=== PATIENT | female | born 1945 | race Caucasian/White ===

== ENCOUNTER → 2017-02-14 12:19 | Outpatient (CLI) | payer MEDICARE ==
[2011-01-08 09:09] VITALS: BMI 14.8
[2017-02-14 12:59] LABS: BASOPHILS 0.6 % (0-2); HEMATOCRIT 38.7 % (36.0-48.0); IMMATURE GRANULOCYTES 0.3 % (0-5); LYMPHOCYTES 18.5 % (15-50); MCH 31.1 pg (26.0-34.0); MCHC 33.6 g/dL (31.0-37.0); MCV 92.6 fL (80.0-100.0); MEAN PLATELET VOLUME 9.5 fL (7.4-10.4); MONOCYTES 9.4 % (2-11); NEUTROPHILS 69.2 % (40-80); RBC 4.18 10x6/uL (4.00-5.40); RDW 13.6 % (11.5-14.5); WBC 7.1 10x3/uL (4.8-10.8)
[2017-02-14 13:00] LABS: PLATELET COUNT 401 10x3/uL (130-400)
[2017-02-14 13:20] LABS: ALBUMIN 2.5 g/dL (3.4-5.0); ANION GAP 11.1 mmol/L (8-16); BILIRUBIN - TOTAL 0.25 mg/dL (0.2-1.3); CALCIUM 8.9 mg/dL (8.5-10.1); CARBON DIOXIDE 29.3 mmol/L (21.0-32.0); CREATININE - SERUM 0.9 mg/dL (0.6-1.3); POTASSIUM - SERUM 3.4 mmol/L (3.5-5.1); PROTEIN - SERUM 7.2 g/dL (6.4-8.2)
== END | disposition home or self-care (01) ==
LOC: D.RAD 12:19
PROVIDERS: Family Medicine
DX: J44.9 Chronic obstructive pulmonary disease, unspecified (principal); J18.9 Pneumonia, unspecified organism

== ENCOUNTER 2017-07-07 10:37 | Emergency (ER) | payer MEDICARE ==
[2011-01-08 09:09] VITALS: BMI 14.8
== END 2017-07-07 14:00 | disposition home or self-care (01) ==
LOC: D.ER 10:37
DX: M06.831 Other specified rheumatoid arthritis, right wrist (principal)

== ENCOUNTER → 2017-08-01 13:12 | Outpatient (CLI) | payer MEDICARE ==
[2011-01-08 09:09] VITALS: BMI 14.8
[2017-08-01 14:35] LABS: BASOPHILS 0.2 % (0-2); EOSINOPHILS 0.6 % (0-7); HEMOGLOBIN 14.7 g/dL (12-16); IMMATURE GRANULOCYTES 0.1 % (0-5); LYMPHOCYTES 11.7 % (15-50); MCH 31.6 pg (26.0-34.0); MCHC 34.2 g/dL (31.0-37.0); MCV 92.5 fL (80.0-100.0); MEAN PLATELET VOLUME 10.3 fL (7.4-10.4); MONOCYTES 7.2 % (2-11); NEUTROPHILS 80.2 % (40-80); RBC 4.65 10x6/uL (4.00-5.40); WBC 8.2 10x3/uL (4.8-10.8)
[2017-08-01 14:37] LABS: PLATELET COUNT 210 10x3/uL (130-400)
[2017-08-01 14:40] LABS: ALBUMIN 2.9 g/dL (3.4-5.0); ANION GAP 14.4 mmol/L (8-16); BILIRUBIN - TOTAL 0.88 mg/dL (0.2-1.3); C-REACTIVE PROTEIN 6.7 mg/dL (0.0-0.9); CALCIUM 8.7 mg/dL (8.5-10.1); CARBON DIOXIDE 26.7 mmol/L (21.0-32.0); CREATININE - SERUM 0.9 mg/dL (0.6-1.3); POTASSIUM - SERUM 4.1 mmol/L (3.5-5.1); PROTEIN - SERUM 7.2 g/dL (6.4-8.2)
[2017-08-01 15:52] LABS: ERYTHROCYTE SEDIMENTATION RATE 63 mm/hr (0-30)
== END | disposition home or self-care (01) ==
LOC: D.LAB 13:12
PROVIDERS: Family Medicine
DX: J44.9 Chronic obstructive pulmonary disease, unspecified (principal); M06.9 Rheumatoid arthritis, unspecified; M18.0 Bilateral primary osteoarthritis of first carpometacarpal joints; M19.90 Unspecified osteoarthritis, unspecified site

== ENCOUNTER → 2018-08-21 11:42 | Outpatient (CLI) | payer MEDICARE ==
[2011-01-08 09:09] VITALS: BMI 14.8
== END | disposition home or self-care (01) ==
LOC: D.RT 06-22 11:00 → D.RAD 06-22 11:45 → D.RT 11:42
PROVIDERS: ATTEND Internal Medicine Pulmonary Disease
DX: J44.9 Chronic obstructive pulmonary disease, unspecified (principal)

== ENCOUNTER → 2018-11-06 12:25 | Outpatient (CLI) | payer MEDICARE ==
[2011-01-08 09:09] VITALS: BMI 14.8
== END | disposition home or self-care (01) ==
LOC: D.RAD 10-19 13:00
PROVIDERS: ATTEND Family Medicine
DX: R13.10 Dysphagia, unspecified (principal)

== ENCOUNTER → 2019-01-22 13:32 | Outpatient (CLI) | payer MEDICARE ==
[2011-01-08 09:09] VITALS: BMI 14.8
== END | disposition home or self-care (01) ==
LOC: D.RAD 11-26 09:15
PROVIDERS: ATTEND Internal Medicine Pulmonary Disease
DX: A31.0 Pulmonary mycobacterial infection (principal)

== ENCOUNTER 2020-06-06 22:15 | Inpatient (IN) | payer MEDICARE ==
[~2020-06-06] VITALS: Ht 165.1 cm; Wt 28.8 kg
--- NOTE | ~2020-06-06 | CN ---
PATIENT NAME:TERRELL JFAFE MEDICAL RECORD: [id number] : 47 LOCATION:D.MS [address] ADMIT DATE: 06/07/20 ACCOUNT: [id number] CONSULTING PHYSICIAN: JOHN KOTHARI MD REFERRING PHYSICIAN: JOSH EWING MD DATE OF CONSULTATION: 06/07/2020 HISTORY OF PRESENT ILLNESS: The patient is a 74-year-old female with history of COPD-O2 dependent, atherosclerotic heart disease, CVA, cardiomegaly via chest x-ray who was admitted with presyncope/syncope symptoms. The patient denies any active chest pain symptoms. The patient complains of chronic back pain. Asked to evaluate from a cardiovascular standpoint. PAST MEDICAL HISTORY: Significant for; 1. Presyncope/syncope. 2. History of CVA. 3. Atherosclerotic heart disease. 4. History of COPD-O2 dependent. 5. Cardiomegaly via chest x-ray. PHYSICAL EXAMINATION: GENERAL: Frail white female, O2 oxygen, in no apparent distress. VITAL SIGNS: Blood pressures 120s/50s, pulse 80s (regular). HEENT: Sclerae clear; conjunctivae pink. NECK: Supple; no appreciable JVD. HEART: She has got a regular rhythm and rate. II/ systolic murmur. LUNGS: Mild rhonchi bilaterally. No rales. ABDOMEN: Benign. EXTREMITIES: Negative for edema. NEUROLOGIC: Nonfocal. LABORATORY DATA: White blood cell count 8.5, hemoglobin and hematocrit 15 and 44, platelet count is 171. Sodium 138, potassium 3.8, BUN 19, creatinine 0.9. BNP is 1831 (elevated). Troponin 0.017 (negative). TSH 2.0 (within normal limits). DIAGNOSTIC STUDIES: EKG shows sinus rhythm, 75 beats per minute with occasional VPC. MEDICATIONS: 1. Nicotine patch. 2. Lovenox 30 mg subQ daily. 3. Protonix 40 mg daily. 4. Albuterol inhalers. HOME MEDICATION: Trazodone 50 mg p.o. q.8 hours p.r.n. ASSESSMENT AND PLAN: 1. Presyncope/syncope. 2. Atherosclerotic heart disease. 3. Cardiomegaly via chest x-ray. 4. Chronic obstructive pulmonary disease-O2 dependent. 5. Frail appearance. PLAN: Continue current medical management at this time. I agree with CONSULT REPORT [id number] TERRELL JAFFE continuing telemetry monitoring at this time. The patient also will be scheduled for echocardiogram to assess LV function and valvular status. Further recommendations as clinically indicated. Thank you for allowing me to participate in the care of this patient. TRANSINT:[id number] Voice Confirmation ID: [id number] DOCUMENT ID: [id number] JOHN KOTHARI MD CC: [id number] DICTATION DATE: 06/07/20 1325 WAX COATING MACHINE TENDER: 06/07/202028 ADM IN [place] [id number] [place] [id number]
--- NOTE | ~2020-06-06 | EC ---
PATIENT:TERRELL JAFFE DATE OF SERVICE: 06/07/20 SEX: F MEDICAL RECORD: [id number] DATE OF : [birth year] LOCATION:D.MS [place] AGE OF PATIENT: 74 ADMISSION DATE: 06/07/20 REFERRING PHYSICIAN: INTERPRETING PHYSICIAN: JOHN TYLER MD ECHOCARDIOGRAM REPORT ECHO CHARGES 4 ECHO COMPLETE Date: 06/07/20 CLINICAL DIAGNOSIS: SYNCOPE ECHOCARDIOGRAPHIC MEASUREMENTS (adult normal given) AC root (d.<3.7cm) 2.7 cm LV Septum d (<1.2 cm> 1.0 cm Valve Excursion 1.3 cm LV Septum (systole) 1.1 cm Left Atria (s.<4.0cm> 3.2 cm LVPW d(<1.2cm) 1.2 cm RV (d.<2.3cm) 2.3 cm LVPW (sytole) 1.7 cm LV diastole(<5.6CM) 2.7 cm MV E-F(>70mm/sec) cm LV systole 1.7 cm LVOT Diameter 1.9 cm MV exc.(>10mm) 1.4 cm Est.ejection fraction (50-75%) % DOPPLER: LVIT cm/sec A 163.0cm/sec E 244.0 cm/sec LA cm/sec RVSP 17 mmHg LVOT 70 cm/sec AOP1/2T m/s Asc. Ao 105 cm/sec RVOT 82 cm/sec RA cm/sec PA 94 cm/sec AV Gradient Peak 4.42 mmHg AV Mean 2.39 mmHg AV Area 1.5 cm MV Gradient Peak 21.10mmHg MV Mean 10.98mmHg MV Area cm COMMENTS: Welder Operator: 2 MAYKEL GUEVARA Cytopathologist: 5 Dr. Tyler TAPE# PACS Pericardial Effusion N DATE OF SERVICE: CLINICAL: Syncope. INTERPRETATION: Normal left ventricular chamber size and contractile function with ejection fraction of 60%. Left atrial chamber appears normal. Right atrium and right ventricular chamber size and function appear normal. Mild thickening, calcification of the aortic valve with good cusp excursion. Aortic sclerosis noted. No stenosis/regurgitation. Mild thickening, calcification of the mitral valve. Mild mitral annulus calcification. Mild mitral ECHOCARDIOGRAM REPORT [id number] TERRELL JAFFE regurgitation. Tricuspid valve appears normal. No tricuspid regurgitation noted. Pulmonic valve appears normal. Trace to mild pulmonary regurgitation. No pericardial effusion visualized. IMPRESSION: Normal left ventricular chamber size and contractile function with ejection fraction of 60%. TRANSINT:[id number] Voice Confirmation ID: [id number] DOCUMENT ID: [id number] JOHN TYLER MD CC: [id number] DICTATION DATE: 06/07/20 1348 COAT OPERATOR INSULATOR: 06/07/202033 ADM IN [facility] [address] [place] [address]
[2020-06-06] MEDS ORDERED: ULTRAM50 MG PO (22:22)
[2020-06-06] MEDS ORDERED: PEPCID40 MG PO (22:23)
[2020-06-06 22:40] LABS: BASOPHILS 0.4 % (0-2); EOSINOPHILS 1.2 % (0-7); IMMATURE GRANULOCYTES 0.7 % (0-5); LYMPHOCYTE ABS# 1.29 10x3/uL (1.18-3.74); LYMPHOCYTES 15.2 % (15-50); MCH 31.1 pg (26.0-34.0); MCHC 34.1 g/dL (31.0-37.0); MCV 91.3 fL (80.0-100.0); MONOCYTES 8.1 % (2-11); NEUTROPHIL ABS# 6.31 10x3/uL (1.56-6.13); NEUTROPHILS 74.4 % (40-80); PLATELET COUNT 171 10x3/uL (130-400); RBC 4.82 10x6/uL (4.00-5.40); RDW 13.7 % (11.5-14.5); WBC 8.5 10x3/uL (4.8-10.8)
[2020-06-06 22:52] LABS: APTT 31.3 SECONDS (22.8-39.4); INR 1.15 (0.85-1.17); PROTIME 13.6 SECONDS (11.6-15.0)
[2020-06-06 22:57] LABS: CALC OSMOLALITY 279 mosm/kg (275-300); CARBON DIOXIDE 27.4 mmol/L (21.0-32.0); CHLORIDE - SERUM 101 mmol/L (98-107); CREATININE - SERUM 0.9 mg/dL (0.6-1.3); POTASSIUM - SERUM 3.8 mmol/L (3.5-5.1); SODIUM 138 mmol/L (136-145); UREA NITROGEN 19 mg/dL (7-18); eGFR NON AFRICAN AMERICAN 65 mL/min (90-120)
[2020-06-06 22:59] LABS: GLUCOSE 135 mg/dL (74-106)
[2020-06-06 23:01] LABS: D-DIMER-QUANTITATIVE 18.37 ug/mLFEU (0.20-0.54)
[2020-06-06 23:08] LABS: ALBUMIN 3.4 g/dL (3.4-5.0); ALKALINE PHOSPHATASE 112 U/L (30-120); ALT (SGPT) 38 U/L (10-68); BILIRUBIN - TOTAL 0.26 mg/dL (0.2-1.3); CREATINE KINASE 135 UL (21-215); MAGNESIUM - SERUM 1.9 mg/dL (1.8-2.4); PRO BNP 1831 pg/mL (0-125); THYROID STIMULATING HORMONE 2.08 uIU/mL (0.36-3.74); TROPONIN-I < 0.017 ng/mL (0.000-0.060)
[2020-06-06 23:59] VITALS: BP 142/74
[2020-06-07 01:00] VITALS: BP 148/85
[2020-06-07 02:00] VITALS: BP 128/42
[2020-06-07 03:29] VITALS: BMI 10.5
[2020-06-07 04:46] VITALS: BP 124/58
[2020-06-07 11:28] VITALS: BP 121/55
--- NOTE | 2020-06-07 11:47 | NUR ---
ASSISTED PATIENT TO RESTROOM, NO OTHER NEEDS AT THIS TIME. CONTINUE WITH PLAN OF CARE
[2020-06-07 16:00] VITALS: BP 109/56
--- NOTE | 2020-06-07 17:18 | NUR ---
I have reviewed this patient and I concur with the Shift Assessment completed by the Licensed Practical Nurse today this shift.
[2020-06-07 18:48] VITALS: BP 116/56
--- NOTE | 2020-06-07 20:06 | NUR ---
RECEIVED REPORT, ASSUMED CARE, CALL LIGHT IN REACH, BREATHING SHALLOW, DENIES NEEDS, SCD'S ON, SLEEPING, AROUSED EASILY TO VOICE, ENCOURAGED PT TO NOTIFY STAFF OF ANY NEEDS
[2020-06-07 21:49] LABS: BILIRUBIN NEGATIVE (NEGATIVE); KETONE NEGATIVE (NEGATIVE); NITRITE NEGATIVE (NEGATIVE); UROBILINOGEN NORMAL mg/dL (< 2)
[2020-06-08 09:33] VITALS: BP 122/60
--- NOTE | 2020-06-08 11:45 | NUR ---
PATIENT STATED DR EWING SHE CAN GO HOME AFTER DOPPLER. EXPLAINED TO HER THAT IS NOTHING IS SEEN ON DOPPLER SHE MOST POSSIBLE CAN BE DC BUT WE HAVE TO WAIT AND SEE. NO OTHER NEEDS AT THIS TIME. CONINUE WITH PLAN OF CARE
[2020-06-08 13:56] VITALS: BP 100/43
[2020-06-08 17:05] VITALS: BP 87/41
[2020-06-08 20:00] VITALS: BP 105/42
[2020-06-09] VITALS: BP 139/58
[2020-06-09 04:00] VITALS: BP 138/72
[2020-06-09 08:02] VITALS: BP 118/49
--- NOTE | 2020-06-09 12:30 | NUR ---
PER DR MELLO PATIENT IS CLEARED TO GO HOME FROM THEIR PERSPECTIVE, AWAITING DR EWING
[2020-06-09 13:19] VITALS: BP 105/47
[2020-06-09 13:21] VITALS: Ht 165.1 cm; Wt 28.8 kg
[2020-06-09] MEDS ORDERED: IPRAT-ALBUT 0.5-3 ML UPD (15:59)
[2020-06-09] MEDS ORDERED: NICODERM CQ1 EAC3 TOPICAL (16:42)
[2020-06-09 17:07] VITALS: BP 86/39
--- NOTE | 2020-06-09 17:34 | NUR ---
WENT OVER PATIENT DC PAPERWORK WELL FOLLOW UP APPOINTMENTS. IV DC WITH CATHETER IN PLACE. ALL QUESTIONS ANSWERED, PATIENT TAKEN OUT VIA WC BY HOSPITAL TRANSPORT. PATIENT HAD O2 DELIVERED.
--- NOTE | 2020-06-10 10:22 | MORECARE ---
CASE MANAGEMENT DISCHARGE SUMMARY PATIENT: TERRELL JAFFE UNIT: [id number] ADM DATE: 06/08/20 AGE: 74 : 46 SEX: F ROOM/BED: D.2232 AUTHOR: YOBANY,DOC PHYSICIAN: REFERRING PHYSICIAN: JOSH STEWARD MD DATE OF SERVICE: 06/10/20 Case Management Discharge Planning Summary COMMENTS ENTERED DATE: 06/10/20 7:37 CT COMMENT TYPE: Discharge Planning REVIEWER: Chela Girard late entry 06/09/20 @ 1700 CM met with patient to discuss discharge planning she stated that she lives alone, but her daughter lives behind her and will be there if she needs it. Her PCP is Dr Steward and she uses [facility] [address] Her daughter will cook for her and she is pretty independent with her care. She has someone ( she is unsure of what company) send her bed pads and pull ups. I asked her if it was a [employer] program, but she didn't know. She said it just gets shipped to her. We talked about having home health and she did not want that due to her having a dog in her home who is very protective. She has a walker and a nebulizer at home. She is qualify for home O2 with portability. She didn't care when we got her O2 from. [employer] with [employer] delivered her portable o2 here to the hospital and then they were going to set up the concentrator at her home when she was discharge this evening. Patient denied any other needs. KATRINA signed for DME and refusal of HH services DCP REVIEW SUMMARY ANTICIPATED D/C DATE: EXPECTED LOS : CASE STATUS: DCP Initiated INITIAL REVIEW: 06/07/2020 INITIAL REVIEWER: Chela Girard FINAL DISCHARGE DISPOSITION: 01 : Home or Self Care (Routine Discharge) FINAL REVIEWER: FINAL REVIEW DATE: DCP Focus Questions & Answers QUESTION: ANSWER : PATIENT: TERRELL JAFFE ENCOUNTER: [id number] MEDICAL RECORD#: [id number] ADMISSION DATE: 06/08/2020 DISCHARGE DATE: 06/09/2020 ATTENDING MD: JOSH KWONG : AGE: 74 MARITAL STATUS: D DC PLAN ID: [id number] FACILITY: [facility] PRINTED ON: 06/10/20 7:44 CT All edits/amendments must be made on the electronic document DICTATION DATE: 06/10/20742 SHAKER REPAIRER: LOUIS 06/10/2043 RPT#: [id number] DC DATE:06/09/20 STATUS: DIS IN [facility] [address] [place] [address] END OF REPORT
--- NOTE | 2020-06-10 10:22 | MORECARE ---
CASE MANAGEMENT DISCHARGE SUMMARY PATIENT: TERRELL JAFFE UNIT: [id number] ADM DATE: 06/08/20 AGE: 74 : 46 SEX: F ROOM/BED: [facility] AUTHOR: YOBANY,DOC PHYSICIAN: REFERRING PHYSICIAN: JOSH EWING MD DATE OF SERVICE: 06/10/20 Case Management Discharge Planning Summary DCP REVIEW SUMMARY ANTICIPATED D/C DATE: EXPECTED LOS : CASE STATUS: DCP Initiated INITIAL REVIEW: 06/07/2020 INITIAL REVIEWER: Chela Girard FINAL DISCHARGE DISPOSITION: 01 : Home or Self Care (Routine Discharge) FINAL REVIEWER: FINAL REVIEW DATE: DCP Focus Questions & Answers QUESTION: ANSWER : PATIENT: TERRELL JAFFE ENCOUNTER: [id number] MEDICAL RECORD#: [id number] ADMISSION DATE: 06/08/2020 DISCHARGE DATE: 06/09/2020 ATTENDING MD: JOSH KWONG : AGE: 74 MARITAL STATUS: D DC PLAN ID: [id number] FACILITY: [facility] PRINTED ON: 06/10/20 7:33 CT All edits/amendments must be made on the electronic document DICTATION DATE: 06/10/20732 SUPERVISOR INSTRUMENT REPAIR: LOUIS 06/10/20732 RPT#: [id number] DC DATE:06/09/20 STATUS: DIS IN [facility] [address] [place] [address] END OF REPORT
--- NOTE | 2020-06-10 10:22 | MORECARE ---
CASE MANAGEMENT DISCHARGE SUMMARY PATIENT: TERRELL JAFFE UNIT: [id number] ADM DATE: 06/08/20 AGE: 74 : 46 SEX: F ROOM/BED: D.2232 AUTHOR: YOBANY,DOC PHYSICIAN: REFERRING PHYSICIAN: JOSH STEWARD MD DATE OF SERVICE: 06/10/20 Case Management Discharge Planning Summary COMMENTS ENTERED DATE: 06/10/20 7:37 CT COMMENT TYPE: Discharge Planning REVIEWER: Chela Girard late entry 06/09/20 @ 1700 CM met with patient to discuss discharge planning she stated that she lives alone, but her daughter lives behind her and will be there if she needs it. Her PCP is Dr Steward and she uses [facility] [address] Her daughter will cook for her and she is pretty independent with her care. She has someone ( she is unsure of what company) send her bed pads and pull ups. I asked her if it was a [employer] program, but she didn't know. She said it just gets shipped to her. We talked about having home health and she did not want that due to her having a dog in her home who is very protective. She has a walker and a nebulizer at home. She is qualify for home O2 with portability. She didn't care when we got her O2 from. [employer] with [employer] delivered her portable o2 here to the hospital and then they were going to set up the concentrator at her home when she was discharge this evening. Patient denied any other needs. KATRINA signed for DME and refusal of HH services DCP REVIEW SUMMARY ANTICIPATED D/C DATE: EXPECTED LOS : CASE STATUS: DCP Initiated INITIAL REVIEW: 06/07/2020 INITIAL REVIEWER: Chela Girard FINAL DISCHARGE DISPOSITION: 01 : Home or Self Care (Routine Discharge) FINAL REVIEWER: FINAL REVIEW DATE: DCP Focus Questions & Answers QUESTION: ANSWER : PATIENT: TERRELL JAFFE ENCOUNTER: [id number] MEDICAL RECORD#: [id number] ADMISSION DATE: 06/08/2020 DISCHARGE DATE: 06/09/2020 ATTENDING MD: JOSH KWONG : AGE: 74 MARITAL STATUS: D DC PLAN ID: [id number] FACILITY: [facility] PRINTED ON: 06/10/20 9:26 CT All edits/amendments must be made on the electronic document DICTATION DATE: 06/10/20925 BASEBALL SCOUT: LOUIS 06/10/20925 RPT#: [id number] DC DATE:06/09/20 STATUS: DIS IN [facility] [address] [place] [address] END OF REPORT
== END 2020-06-09 17:49 | disposition home or self-care (01) | DRG 190 ==
LOC: D.ER 22:15 → D.MS 06-07 02:00 → OBSVTIME 06-07 02:00 → D.MS 06-07 02:00
PROVIDERS: Family Medicine; ADMIT Family Medicine; ATTEND Family Medicine
DX: J43.9 Emphysema, unspecified (principal); E43 Unspecified severe protein-calorie malnutrition; Z68.1 Body mass index [BMI] 19.9 or less, adult; R55 Syncope and collapse; I25.119 Atherosclerotic heart disease of native coronary artery with unspecified angina pectoris; Z86.73 Personal history of transient ischemic attack (TIA), and cerebral infarction without residual deficits; M81.0 Age-related osteoporosis without current pathological fracture; F17.200 Nicotine dependence, unspecified, uncomplicated; K21.9 Gastro-esophageal reflux disease without esophagitis; N39.3 Stress incontinence (female) (male); M48.02 Spinal stenosis, cervical region; R13.10 Dysphagia, unspecified